=== PATIENT | female | born 1980 | race Two or more races ===

== ENCOUNTER 2024-02-10 07:01 | Outpatient (RCR) | payer OTHER, BC, SELFPAY ==
[2024-01-30 08:40] VITALS: BP 111/65; PULSE 66; RESP 15; TEMP 36.6; O2SAT 100; BMI 31.2
[2024-01-30] MEDS: FERRIC SOD GLUC INJ 125 MG in SODIUM CHLORIDE 0.9% 100 ML 110 MG IV (08:59)
[2024-01-30 10:05] VITALS: BP 137/73; PULSE 68; RESP 15; TEMP 36.9; O2SAT 97
[2024-02-06 08:58] VITALS: BP 125/79; PULSE 71; RESP 18; TEMP 36.9; O2SAT 99; BMI 31.1
[2024-02-06] MEDS: FERRIC SOD GLUC INJ 125 MG in SODIUM CHLORIDE 0.9% 100 ML 110 MG IV (09:22)
[2024-02-10 07:25] VITALS: BP 139/87; PULSE 76; RESP 12; TEMP 36.3; O2SAT 98; BMI 30.9
[2024-02-10] MEDS: FERRIC SOD GLUC INJ 125 MG in SODIUM CHLORIDE 0.9% 100 ML 110 MG IV (08:00)
[2024-02-10 09:05] VITALS: BP 133/90; PULSE 70; RESP 13; TEMP 36.3; O2SAT 98
== END 2024-02-14 23:59 | disposition home or self-care (01) ==
LOC: SFLEX 07:01
PROVIDERS: PCP Internal Medicine; Referring Provider Internal Medicine; Visit Provider Internal Medicine
PROC: (CPT 96365; principal; 2024-01-30 08:00)
DX: D50.8 Other iron deficiency anemias (principal)
CPT/HCPCS: 96365; 96366; J2916; J7050

== ENCOUNTER → 2024-02-20 | Outpatient (CLI) | payer OTHER, BC, SELFPAY ==
[2024-02-20] MEDS: FERRIC SOD GLUC INJ 125 MG in SODIUM CHLORIDE 0.9% 100 ML 110 MG IV (09:24)
[2024-02-20 09:29] VITALS: BP 113/80; PULSE 61; RESP 14; TEMP 36.3; O2SAT 98; BMI 30.2
[2024-02-20 10:35] VITALS: BP 112/63; PULSE 67; RESP 14; TEMP 36.3; O2SAT 97
== END | disposition home or self-care (01) ==
LOC: SFLEX 08:40
PROVIDERS: PCP Internal Medicine; Referring Provider Internal Medicine; Visit Provider Internal Medicine
PROC: (CPT 96365; principal; 2024-02-20 08:00)
DX: D50.8 Other iron deficiency anemias (principal)
CPT/HCPCS: 96365; J2916; J7050

== ENCOUNTER → 2024-04-01 | Outpatient (CLI) | payer OTHER, SELFPAY ==
--- NOTE | 2024-04-01 08:55 | XR_ITS ---
Examination: Shoulder,left, 3 views Technique: Shoulder AP internal rotation, AP external rotation, Y view shoulder, 3 views Exam date and time :April 01, 2024 0900 hours INDICATIONS: Left shoulder pain beginning 2 days ago. FINDINGS: Moderate osteopenia Minimal calcific tendinitis No fracture or dislocation Moderate narrowing glenohumeral joint IMPRESSION: Moderate narrowing glenohumeral joint Minimal calcific tendinitis
== END | disposition home or self-care (01) ==
LOC: CDIM 08:32
PROVIDERS: PCP Family Medicine; Referring Provider Family Medicine; Visit Provider Family Medicine
DX: M25.812 Other specified joint disorders, left shoulder (principal); S43.422A Sprain of left rotator cuff capsule, initial encounter; X58.XXXA Exposure to other specified factors, initial encounter
CPT/HCPCS: 73030

== ENCOUNTER → 2024-05-14 | Outpatient (CLI) | payer OTHER, BC, SELFPAY ==
[2024-05-14 15:41] LABS: Ferritin 4 ng/mL (7.3-270.7); Iron 22 mcg/dL (50-170); Total Iron Binding Capacity 424 mcg/dL (250-425)
[2024-05-14 15:47] LABS: Alanine Aminotransferase 13 U/L (10-49); Albumin/Globulin Ratio 1.5 (1.2-2.2); Alkaline Phosphatase 78 U/L (46-116); Anion Gap 7 (7-16); Aspartate Amino Transferase 12 U/L (0-34); BUN/Creatinine Ratio 23 Ratio (12-20); Bilirubin,Total 0.4 mg/dL (0.3-1.2); Blood Urea Nitrogen 18 mg/dL (9-23); Calcium 9.2 mg/dL (8.3-10.6); Calcium (Corrected) 9.2 mg/dL (8.5-10.1); Carbon Dioxide 28.7 mMol/L (20.0-31.0); Chloride 107 mMol/L (98-107); Creatinine (Component) 0.8 mg/dL (0.6-1.3); Free T4 (Free Thyroxine) 1.35 ng/dL (0.89-1.76); Globulin 2.6 gm/dL (2.3-3.5); Glucose 79 mg/dL (74-106); Osmolality,Calculated 285 (275-295); Potassium 4.3 mMol/L (3.4-5.1); Sodium 143 mMol/L (136-145); Thyroid Stimulating Hormone 2.09 uIU/mL (0.55-4.78); Total Protein 6.6 gm/dL (5.7-8.2); eGFR > 60 See Note
[2024-05-19 17:52] LABS: Thyroglobulin Antibodies 1 IU/mL (< OR = 1)
[2024-05-20 07:07] LABS: T3,Total* 80 ng/dL (76-181); Thyroglobulin <0.1 ng/mL
== END | disposition home or self-care (01) ==
PROVIDERS: PCP Internal Medicine; Referring Provider Internal Medicine Endocrinology, Diabetes & Metabolism; Visit Provider Internal Medicine Endocrinology, Diabetes & Metabolism
DX: E61.1 Iron deficiency (principal); C73 Malignant neoplasm of thyroid gland
CPT/HCPCS: 36415; 80053; 82728; 83540; 83550; 84432; 84439; 84443; 84480; 86800

== ENCOUNTER → 2024-09-30 | Outpatient (CLI) | payer BC, SELFPAY ==
[2024-09-30 16:29] LABS: Basophils # (Auto) 0.0 Thou/mm3 (0.0-0.2); Basophils % (Auto) 1 % (0-2.5); Eosinophils # (Auto) 0.1 Thou/mm3 (0.0-0.5); Eosinophils % (Auto) 2 % (0-10); Hematocrit 31.0 % (36.0-46.0); Immature Granulocytes Auto 0.04 Thou/mm3 (0.00-0.00); Lymphocytes # (Auto) 2.0 Thou/mm3 (1.0-4.8); Lymphocytes % (Auto) 34 % (10-50); Mean Corpuscular HGB Conc 28.4 g/dl (31.0-37.0); Mean Corpuscular Hemoglobin 20.5 pg (25.0-35.0); Mean Corpuscular Volume 72 fL (80-100); Monocytes # (Auto) 0.5 Thou/mm3 (0.0-0.8); Monocytes % (Auto) 9 % (0-12); Neutrophils # (Auto) 3.2 Thou/mm3 (1.8-7.7); Neutrophils % (Auto) 54 % (37-80); Nucleated Red Blood Cell # 0.00 Thou/mm3 (0.00-0.00); Nucleated Red Blood Cell % 0 /100 WBC (0); Platelet Count 407 Thou/mm3 (140-440); RDW Standard Deviation 42.8 fL (36.4-46.3); Red Blood Count 4.29 Miln/mm3 (4.00-5.20); White Blood Count 5.9 Thou/mm3 (3.6-11.0)
[2024-09-30 16:45] LABS: Hemoglobin 8.8 g/dL (12.0-16.0)
[2024-09-30 16:47] LABS: Alanine Aminotransferase 11 U/L (10-49); Albumin, Serum 4.3 gm/dL (3.5-5.0); Albumin/Globulin Ratio 1.5 (1.2-2.2); Alkaline Phosphatase 83 U/L (46-116); Anion Gap 11 (7-16); Aspartate Amino Transferase 18 U/L (0-34); BUN/Creatinine Ratio 13 Ratio (12-20); Bilirubin,Total 0.8 mg/dL (0.3-1.2); Blood Urea Nitrogen 10 mg/dL (9-23); Calcium 9.2 mg/dL (8.3-10.6); Calcium (Corrected) 9.2 mg/dL (8.5-10.1); Carbon Dioxide 26.0 mMol/L (20.0-31.0); Chloride 106 mMol/L (98-107); Creatinine (Component) 0.8 mg/dL (0.6-1.3); Free T4 (Free Thyroxine) 1.87 ng/dL (0.89-1.76); Globulin 2.8 gm/dL (2.3-3.5); Glucose 94 mg/dL (74-106); Osmolality,Calculated 283 (275-295); Potassium 4.2 mMol/L (3.4-5.1); Sodium 143 mMol/L (136-145); Thyroid Stimulating Hormone 0.03 uIU/mL (0.55-4.78); Total Protein 7.1 gm/dL (5.7-8.2); eGFR > 60 See Note
[2024-10-06 06:32] LABS: T3,Total* 85 ng/dL (76-181); Thyroglobulin Antibodies* 1 IU/mL (< OR = 1)
== END | disposition home or self-care (01) ==
LOC: COPL 14:24
PROVIDERS: PCP Internal Medicine; Referring Provider Internal Medicine Endocrinology, Diabetes & Metabolism; Visit Provider Internal Medicine Endocrinology, Diabetes & Metabolism
DX: C73 Malignant neoplasm of thyroid gland (principal)
CPT/HCPCS: 36415; 80053; 84439; 84443; 84480; 85025; 86800